=== PATIENT | female | born 1990 | race Caucasian/White ===

== ENCOUNTER 2018-03-23 13:28 | Emergency (ER) | payer OTHER ==
[~2018-03-23] VITALS: Ht 165.1 cm; Wt 78.0 kg
[~2018-03-23 13:28] MED LIST: MUCINEX DM1 TAB.SR . PO; NASONEX17 GM NS; ZITHROMAX200 MG PO
== END 2018-03-23 15:33 | disposition home or self-care (01) ==
LOC: ER 13:28
DX: S60.221A Contusion of right hand, initial encounter (principal); W18.39XA Other fall on same level, initial encounter; Y93.89 Activity, other specified; Y92.098 Other place in other non-institutional residence as the place of occurrence of the external cause; Y99.8 Other external cause status